=== PATIENT | male | born 1990 | race Caucasian/White ===

== ENCOUNTER → 2024-11-27 10:02 | Outpatient (CLI) | payer OTHER, SELFPAY ==
--- NOTE | 2024-11-27 10:05 | DI.RAD.S_ITS ---
PROCEDURE: FL ARTHROGRAM SHOULDER LT INDICATIONS: pain/instability COMPARISON: None. TECHNIQUE: The indications, alternatives, benefits, risks, and complications of the procedure were explained to the patient. Written informed consent was obtained and placed in the chart. The shoulder was examined fluoroscopically and a site for needle placement chosen for entry into the glenohumeral joint from an anterior approach. The skin was prepped and draped in a sterile fashion, and 1% lidocaine infiltrated from skin down to joint capsule. A spinal needle was inserted into the glenohumeral joint, and a small amount of iodinated contrast media injected to confirm intra-articular placement of the needle tip. This was followed by approximately 12 mL dilute solution of a gadolinium containing MR contrast agent. The needle was removed and a dressing was applied. The patient was given postprocedural instructions and sent to the MR suite for MR imaging. FINDINGS: A single fluoroscopic spot image demonstrates intra-articular location of injected iodinated contrast. IMPRESSION: Successful fluoroscopically guided administration of dilute Gadolinium solution into the shoulder joint for MR arthrogram. Dictated by: Logan Rosas M.D. on 11/27/2024 at 16:57 Approved by: Logan Rosas M.D. on 11/27/2024 at 16:58
--- NOTE | 2024-11-27 10:43 | DI.MRI.S_ITS ---
PROCEDURE: MR SHOULDER LT W CON INDICATIONS: pain/instability - LEFT TECHNIQUE: After the administration of 12 mL of dilute intra-articular Gadolinium contrast, oblique coronal T1 and T2 spin echo with fat saturation, oblique sagittal T1 spin echo with and without fat saturation, oblique sagittal T2 fast spin echo with fat saturation, axial T1 spin echo with fat saturation through the shoulder. COMPARISON: None. FINDINGS: Image quality: Excellent. Rotator cuff: Tendinosis and low-grade bursal surface partial-thickness tear involving anterior fibers of distal supraspinatus at its insertion on humeral head is seen extending to musculotendinous junction. Distal infraspinatus and subscapularis tendons are intact. No full-thickness rotator cuff tendon rupture. No significant rotator cuff muscle atrophy on sagittal images. Bones and bursae: No bone marrow contusions or fractures. Mild acromioclavicular joint osteoarthritic changes are seen with joint space narrowing and small marginal osteophyte formation. Type 2 acromion without an os acromiale. Capsule and soft tissues: There is subtle fraying of superior anterior glenoid labrum with contrast extension suggestive of subtle superior anterior glenoid labral tear. The glenohumeral ligaments appear intact. The long head of the biceps tendon demonstrates normal location and morphology. The rotator interval appears normal, without fibrosis. The coracohumeral ligament is of normal thickness. No intra-articular bodies. IMPRESSION: 1. Low-grade bursal surface partial-thickness tear involving anterior fibers of distal supraspinatus extending to musculotendinous junction. No full-thickness rotator cuff tendon rupture. No significant rotator cuff muscle atrophy. 2. Mild acromioclavicular joint osteoarthritis. No marrow edema. No fracture or dislocation. No intra-articular loose bodies. 3. Finding is suggestive of subtle superior anterior left glenoid labral tear. Dictated by: Dave Mcdaniels M.D. on 11/27/2024 at 11:20 Approved by: Dave Mcdaniels M.D. on 11/27/2024 at 11:48
[2024-11-27] MEDS: SODIUM CHLORIDE 0.9 % 20 ML VIAL IV (10:46)
[2024-11-27] MEDS: LIDOCAINE 1% 20 ML INJ (10:46)
== END ==
PROVIDERS: PCP Student in an Organized Health Care Education/Training Program; Referring Provider Student in an Organized Health Care Education/Training Program; Visit Provider Student in an Organized Health Care Education/Training Program
DX: M75.112 Incomplete rotator cuff tear or rupture of left shoulder, not specified as traumatic (principal); M25.312 Other instability, left shoulder; M19.012 Primary osteoarthritis, left shoulder
CPT/HCPCS: 23350; 73040; 73222; A9579; Q9967